=== PATIENT | male | born 1955 | race Caucasian/White ===

== ENCOUNTER 2021-12-31 10:49 | Day surgery (SDC) | payer OTHER, SELFPAY ==
[~2021-12-31] VITALS: Ht 185.4 cm; Wt 90.7 kg
[2021-12-31] MEDS ORDERED: MIDAZOLAM 5 MG/5 ML VIAL ONE (13:36)
[2021-12-31] MEDS ORDERED: LIDOCAINE 2% 100 MG/5 ML UJET TP ONE (13:36)
[2021-12-31] MEDS ORDERED: fentaNYL citrate 0.05 MG/ML VIAL ONE (13:36)
[2021-12-31] MEDS ORDERED: MIDAZOLAM 2 MG/2 ML VIAL IVP ONE (16:15)
[2021-12-31] MEDS ORDERED: fentaNYL citrate 0.05 MG/ML VIAL IVP ONE (16:15)
== END 2021-12-31 15:10 | disposition home or self-care (01) ==
LOC: MDS 10:49 → MMU 10:50 → MDS 15:10
PROVIDERS: ATTEND Internal Medicine Gastroenterology
DX: R19.5 Other fecal abnormalities (principal); D12.7 Benign neoplasm of rectosigmoid junction; K22.2 Esophageal obstruction; K57.30 Diverticulosis of large intestine without perforation or abscess without bleeding; K44.9 Diaphragmatic hernia without obstruction or gangrene; K62.5 Hemorrhage of anus and rectum; Z96.659 Presence of unspecified artificial knee joint; Z80.0 Family history of malignant neoplasm of digestive organs; Z79.899 Other long term (current) drug therapy; Z20.822 Contact with and (suspected) exposure to COVID-19
CPT/HCPCS: 43235; 45385; 87426; J2250; J3010